=== PATIENT | male | born 1995 | race Caucasian/White ===

== ENCOUNTER 2024-03-31 17:24 | Emergency (ER) | payer BC, OTHER ==
[~2024-03-31] VITALS: Ht 180.3 cm; Wt 95.3 kg
[2024-03-31 17:25] VITALS: BP_SYST 133; PULSE 80; RESP 18; TEMP 98.6; O2SAT 97
[2024-03-31] MEDS: KETOROLAC TROMETHAMINE 60 MG/2 ML VIAL IM ONE (19:08)
[2024-03-31] MEDS ORDERED: IBUP-1971 PO (19:37)
[2024-03-31] MEDS ORDERED: HYDR-3917 PO (19:37)
[2024-03-31 19:50] VITALS: BP_SYST 130; PULSE 77; RESP 18; TEMP 98.7; O2SAT 97
== END 2024-03-31 19:50 | disposition home or self-care (01) ==
LOC: SED 17:24
DX: S20.211A Contusion of right front wall of thorax, initial encounter (principal); F17.210 Nicotine dependence, cigarettes, uncomplicated; R03.0 Elevated blood-pressure reading, without diagnosis of hypertension; Y08.89XA Assault by other specified means, initial encounter; Y93.89 Activity, other specified; Y92.89 Other specified places as the place of occurrence of the external cause; Y99.8 Other external cause status
CPT/HCPCS: 99283; 96372; J1885